=== PATIENT | male | born 1960 | race Caucasian/White ===

== ENCOUNTER 2022-02-17 00:28 | Day surgery (SDC) | payer BC, SELFPAY ==
[2022-02-07 09:58] VITALS: BMI 34.0
[2022-02-17 09:40] VITALS: BP 138/50; PULSE 70; RESP 18; TEMP 36.4; O2SAT 96; BMI 33.4
[2022-02-17] MEDS: LACTATED RINGERS 1,000 ML 150 ML IV CONT (10:04)
--- NOTE | 2022-02-17 10:04 | WPDGICN ---
Assessment and Plan Assessment and plan (1) Encounter for screening colonoscopy: Code(s): Z12.11 - Encounter for screening for malignant neoplasm of colon Status: Acute Assessment and Plan: Patient presents for screening colonoscopy. Appears to be at average risk for colon polyps. Further recommendations will be given after endoscopy. GI Consult Note Consult date/time: 02/17/22 10:04 Reason for consult: Neoplasia screening. HPI: Willard Ontiveros is a 61 year old male Presents for neoplasia screening. Patient's current weight appetite and bowel movements are normal. He denies abdominal pain. Patient has had no bleeding. Family history is noncontributory. Patient recently was diagnosed with prostate cancer and desires neoplasia screening colonoscopy at this time. Review of Systems Review of Systems: Review of systems noncontributory. [facility] Past Medical History Medical History Arthritis FallNovember 2019 Gastro-esophageal reflux Hemorrhoid Surgery History of hemorrhoids Hyperglycemia Hyperlipidemia Hypertension Surgical History Surgical History History of eyelid surgery History of foot surgery Family History Family History Father Hypertension Mother GERD (gastroesophageal reflux disease) Thyroid disease Other Heart disease Social History Social History Smoking packs per day: 1 Smoking cigarettes per day: 20.0 Smoking status: Former smoker Tobacco type: cigarettes Second hand tobacco smoke exposure: Yes Smoking end date: 09/24/12 Alcohol intake: current Drinks per week: 7 Alcohol use details: one daily Substance use: never Substance use type: does not use Living arrangements: with family Spiritual care concerns: No Meds Home Medications and Allergies Home Medications Medication Instructions Recorded Confirmed Type aspirin 81 mg tablet,delayed 81 mg PO DAILY 07/29/19 02/17/22 History release lorazepam 0.5 mg tablet 0.5 mg PO TID PRN Anxiety 07/29/19 02/17/22 History fluticasone propionate 50 2 spray intranasal DAILY #15.8 mL 07/12/21 02/17/22 Rx mcg/actuation nasal spray,suspension lisinopril 20 mg tablet 20 mg PO DAILY #90 tabs 09/26/21 02/17/22 Rx rosuvastatin 10 mg tablet (Crestor) 10 mg PO DAILY #90 tabs 09/26/21 02/17/22 Rx pantoprazole 40 mg tablet,delayed 40 mg PO QAM #90 tabs 11/07/21 02/17/22 Rx release (Protonix) citalopram 10 mg tablet 10 mg PO DAILY #90 tabs 12/22/21 02/17/22 Rx Allergies Allergy/AdvReac Type Severity Reaction Status Date / Time No Known Allergies Allergy Unknown Verified 02/17/22 09:49 Vital Signs Vital Signs - 24 hr 02/17/22 09:40 Temperature 97.5 F L Pulse Rate 70 Respiratory Rate 18 Blood Pressure 138/50 L Pulse Oximetry 96 Oxygen Delivery Room Air Exam Narrative: Physical exam reveals patient to be alert. Vital signs stable. HEENT exam is unremarkable. Patient is anicteric. Lungs are clear to auscultation and percussion. Heart is without murmur or extra sounds. Abdominal exam bowel sounds are present soft nontender with no organomegaly. Digital external rectal exam is normal.
--- NOTE | 2022-02-17 10:20 | WPDANESEPPF ---
Anes - Initial Pre Proc Eval Procedure: Operation Date: 02/17/22 11:00 Proposed Procedures p Screening Colonoscopy - Oj Jean MD Date/Time: 02/17/22 10:20 Surgeon: Oj Jean MD Pre Op Diagnosis: neoplasm screening Patient Data Age: 61 Gender: M Height: 1.85 m Weight: 115 kg Last Vital Signs Temp 97.5 F L 02/17/22 09:40 Pulse 70 02/17/22 09:40 Resp 18 02/17/22 09:40 BP 138/50 L 02/17/22 09:40 Pulse Ox 96 02/17/22 09:40 O2 Del Method Room Air 02/17/22 09:40 Allergies Allergy/AdvReac Type Severity Reaction Status Date / Time No Known Allergies Allergy Unknown Verified 02/17/22 09:49 Home Medications Medication Instructions Recorded Confirmed Type aspirin 81 mg tablet,delayed 81 mg PO DAILY 07/29/19 02/17/22 History release lorazepam 0.5 mg tablet 0.5 mg PO TID PRN Anxiety 07/29/19 02/17/22 History fluticasone propionate 50 2 spray intranasal DAILY #15.8 mL 07/12/21 02/17/22 Rx mcg/actuation nasal spray,suspension lisinopril 20 mg tablet 20 mg PO DAILY #90 tabs 09/26/21 02/17/22 Rx rosuvastatin 10 mg tablet (Crestor) 10 mg PO DAILY #90 tabs 09/26/21 02/17/22 Rx pantoprazole 40 mg tablet,delayed 40 mg PO QAM #90 tabs 11/07/21 02/17/22 Rx release (Protonix) citalopram 10 mg tablet 10 mg PO DAILY #90 tabs 12/22/21 02/17/22 Rx Patient hx anesthesia problems: none Family hx anesthesia problems: none Results Review: All pre-operative results and documents have been reviewed as part of the pre-operative evaluation. [facility] Past Medical History Medical History Arthritis FallNovember 2019 Gastro-esophageal reflux Hemorrhoid Surgery History of hemorrhoids Hyperglycemia Hyperlipidemia Hypertension Surgical History Surgical History History of eyelid surgery History of foot surgery Family History Family History Father Hypertension Mother GERD (gastroesophageal reflux disease) Thyroid disease Other Heart disease Social History Social History Smoking packs per day: 1 Smoking cigarettes per day: 20.0 Smoking status: Former smoker Tobacco type: cigarettes Second hand tobacco smoke exposure: Yes Smoking end date: 09/24/12 Alcohol intake: current Drinks per week: 7 Alcohol use details: one daily Substance use: never Substance use type: does not use Living arrangements: with family Spiritual care concerns: No Anes - Eval Final PreProcedure Day of Procedure 02/17/22 10:20 Patient weight: obese Heart: regular rate and rhythm Lungs: clear to auscultation Airway: Mallampati scale class II Neurological: alert and oriented Last oral intake: >/= 8 hours ASA classification: III Emergent: no Anesthetic plan: proceed Anesthesia type and monitoring: general GIVS and standard monitoring Results Review: All pre-operative results and documents have been reviewed as part of the pre-operative evaluation. Informed Consent: The patient's anesthetic plan and its attendant risks and benefits were discussed with the patient/family/POA. Questions were solicited and answers provided to the satisfaction of the patient/family/POA.
[2022-02-17 10:51] VITALS: BP 124/76; PULSE 58; RESP 12; O2SAT 96
[2022-02-17 11:01] VITALS: BP 112/70; PULSE 59; RESP 12; O2SAT 96
[2022-02-17 11:11] VITALS: BP 119/68; PULSE 61; RESP 16; O2SAT 98
== END 2022-02-17 11:15 | disposition home or self-care (01) ==
PROVIDERS: PCP Internal Medicine; Visit Provider Internal Medicine Gastroenterology
PROC: 0DJD8ZZ Inspection of Lower Intestinal Tract, Via Natural or Artificial Opening Endoscopic (ICD-10-PCS; CPT 45378; principal; 2022-02-17 11:00)
DX: Z12.11 Encounter for screening for malignant neoplasm of colon (principal); K64.8 Other hemorrhoids; I10 Essential (primary) hypertension; E78.5 Hyperlipidemia, unspecified; K21.9 Gastro-esophageal reflux disease without esophagitis; Z87.891 Personal history of nicotine dependence; E66.9 Obesity, unspecified; Z68.33 Body mass index [BMI] 33.0-33.9, adult; Z79.82 Long term (current) use of aspirin
CPT/HCPCS: 45378; J2704; J7120

== ENCOUNTER 2022-04-20 07:35 | Outpatient (CLI) | payer BC, SELFPAY ==
--- NOTE | 2022-04-20 08:17 | EST_ITS ---
Patient Info Name: Willard Ontiveros Age: 61 years : 1960 Gender: Male Ht: 74 in Wt: 255 lbs BSA: 2.49 m2 HR: 52 bpm BP: 123 / 67 mmHg Heart Rhythm: Sinus Rhythm Technical Quality: Good Exam Date: 04/20/2022 8:53 AM Exam Location: [facility] Patient Status: Outpatient Admit Date: 04/20/2022 Staff Ordering Physician: Fidencio Cruz DO Tallier: Shelly Pierce RDCS Attending Provider: Fidencio Cruz DO Referring Physician: Anthony MALAGON; Exercise Technologist: Reyna Mckenna CT Exercise Physician: Epifanio Morin DO Exam Type: CA stress echo Study Info Indications R07.89 - Other chest pain Treadmill exercise stress echocardiogram is performed. Summary 1. 1. Negative [place] exercise stress test for ischemic ST changes by ECG criteria. 2. 2. Good functional capacity, achieving 11 METs of workload. 3. 3. Appropriate HR response to exercise. 4. 4. Appropriate HR recovery at 1 minute post exercise. 5. 5. Negative stress echocardiogram for ischemia by wall motion analysis. 6. 6. Patient informed of the above results. Stress Echo Findings Left Ventricle Appropriate increase in LV endocardial thickening with systole. Appropriate augmentation of contractility with systole. No wall motion abnormality. Left Ventricle Normal LV systolic function, no wall motion abnormality. Protocol: [place] Stress ECG Details Stage: REST Duration (min): 1 min : 8 sec Speed (mph): 0.0 Grade (%): 0 HR (bpm): 52 SBP (mmHg): 123 DBP (mmHg): 67 METS: --- Stage: REST Duration (min): 1 min : 30 sec Speed (mph): 0.0 Grade (%): 0 HR (bpm): 57 SBP (mmHg): 123 DBP (mmHg): 67 METS: --- Stage: REST Duration (min): 21 min : 37 sec Speed (mph): 0.0 Grade (%): 0 HR (bpm): 75 SBP (mmHg): 123 DBP (mmHg): 67 METS: --- Stage: STAGE 1 Duration (min): 1 min : 0 sec Speed (mph): 1.7 Grade (%): 10 HR (bpm): 88 SBP (mmHg): 123 DBP (mmHg): 67 METS: --- Stage: STAGE 1 Duration (min): 2 min : 0 sec Speed (mph): 1.7 Grade (%): 10 HR (bpm): 91 SBP (mmHg): 123 DBP (mmHg): 67 METS: --- Stage: STAGE 1 Duration (min): 3 min : 0 sec Speed (mph): 1.7 Grade (%): 10 HR (bpm): 92 SBP (mmHg): 131 DBP (mmHg): 63 METS: --- Stage: STAGE 2 Duration (min): 1 min : 0 sec Speed (mph): 2.5 Grade (%): 12 HR (bpm): 97 SBP (mmHg): 131 DBP (mmHg): 63 METS: --- Stage: STAGE 2 Duration (min): 2 min : 0 sec Speed (mph): 2.5 Grade (%): 12 HR (bpm): 100 SBP (mmHg): 133 DBP (mmHg): 65 METS: --- Stage: STAGE 2 Duration (min): 3 min : 0 sec Speed (mph): 2.5 Grade (%): 12 HR (bpm): 100 SBP (mmHg): 133 DBP (mmHg): 65 METS: --- Stage: STAGE 3 Duration (min): 1 min : 0 sec Speed (mph): 3.4 Grade (%): 14 HR (bpm): 110 SBP (mmHg): 200 DBP (mmHg): 85 METS: ---
== END 2022-04-20 07:36 | disposition home or self-care (01) ==
PROVIDERS: PCP Internal Medicine; Visit Provider Internal Medicine
DX: R07.89 Other chest pain (principal)
CPT/HCPCS: 93351

== ENCOUNTER 2023-01-09 14:33 | Outpatient (CLI) | payer BC, SELFPAY ==
--- NOTE | ~2023-01-09 | XR_ITS ---
XR_[id number]_CR 01/09/2023 14:54 Indication: Cervicalgia Procedure: 4 view cervical spine Comparison: No prior studies for comparison. Findings: Vertebral body heights are maintained. There is mild disc narrowing at C5-6. There is multi level facet and uncinate hypertrophy. No prevertebral soft tissue swelling. No acute fracture or trau matic malalignment. Lung apices are normal. Odontoid process is normal. Impression: 1: Moderate cervical spondylosis. Reviewed, dictated and finalized at location A. Impression: 1: Moderate cervical spondylosis.
== END 2023-01-09 14:34 ==
LOC: MICIMG 14:35
PROVIDERS: PCP Internal Medicine; Visit Provider Internal Medicine
DX: M47.812 Spondylosis without myelopathy or radiculopathy, cervical region (principal)
CPT/HCPCS: 72040

== ENCOUNTER 2023-05-09 09:46 | Outpatient (CLI) | payer BC, SELFPAY ==
--- NOTE | ~2023-05-09 | CT_ITS ---
EXAMINATION: CT abdomen pelvis w con DATE: 05/09/2023 10:27 INDICATION: Prostate cancer. TECHNIQUE: Computed tomography (CT) of the abdomen and pelvis was performed with 100 mL Omnipaque 350 intravenous contrast. Automated exposure control and iterative reconstruction technique were employe d. The dose-length product was 1177.57 mGy-cm. COMPARISON: None. FINDINGS: The visualized portions of the lung bases are clear without pneumonia or pleural effusion. The heart size is normal. No pericardial effusion. The liver, gallbladder, spleen, pancreas, and adre nal glands are normal. There are cysts in the kidneys measuring up to 4 mm. The prostate is mildly en larged. There is prominent fat in left inguinal canal that may be a hernia. There are no dilated loop s of bowel. The appendix is normal. There are no pathologically enlarged lymph nodes. There is no aicha e intraperitoneal fluid. There is moderate lumbar spondylosis. IMPRESSION: 1. No evidence of metastatic disease. Reviewed, dictated and finalized at location A.
--- NOTE | ~2023-05-09 | NM_ITS ---
EXAMINATION: NM bone scan whole body DATE: 05/09/2023 16:10 INDICATION: Prostate cancer TECHNIQUE: The sixth mCi Tc-99m HDP was administered intravenously. Delayed whole-body scintigrams w ere obtained. COMPARISON: CT abdomen pelvis dated 05/09/2023 FINDINGS/IMPRESSION: Physiologic distribution of activity throughout the bones and soft tissues. No lesion suspicious for metastatic disease. Reviewed, dictated and finalized at location A.
[2023-05-09 10:17] LABS: Estimated Glomerular Filt Rate > 60
== END 2023-05-09 09:47 | disposition home or self-care (01) ==
PROVIDERS: PCP Internal Medicine; Visit Provider Urology
DX: C61 Malignant neoplasm of prostate (principal)
CPT/HCPCS: 74177; 78306; A9503; Q9967

== ENCOUNTER 2023-07-23 10:06 | Outpatient (CLI) | payer BC, SELFPAY ==
--- NOTE | ~2023-07-23 | XR_ITS ---
EXAMINATION: XR chest 2V DATE: 07/23/2023 11:31 INDICATION: Malignant neoplasm of prostate. Preop. TECHNIQUE: Frontal and lateral views of the chest were obtained. COMPARISON: CT abdomen and pelvis 05/09/2023 FINDINGS: There is no pneumonia, pleural effusion, or pneumothorax. The heart size is normal. There i s mild chronic anterior wedging of multiple vertebral bodies. IMPRESSION: 1. No acute cardiopulmonary disease. Reviewed, dictated and finalized at location E.
--- NOTE | 2023-07-23 10:54 | ECG_ITS ---
Measurements Intervals [place] Rate: 57 P: 56 WV: 168 QRS: -11 QRSD: 103 T: 1 QT: 421 QTc: 412 Interpretive Statements SINUS BRADYCARDIA NONSPECIFIC T-WAVE ABNORMALITY ABNORMAL ECG NO PREVIOUS ECG AVAILABLE FOR COMPARISON Electronically Signed On 07-23-2023 11:13:40 CDT by Clint Faith M.D.
[2023-07-23 11:18] LABS: Basophils Absolute Auto 0.1 K/mm3 (0.0-0.1); Basophils Percent Auto 1.2 % (0.2-1.2); Eosinophils Absolute Auto 0.3 K/mm3 (0-0.3); Eosinophils Percent Auto 3.5 % (0-4.4); Hematocrit 44.8 % (42.0-52.0); Hemoglobin 14.9 g/dL (14.0-18.0); Immature Granulocyte Absolute 0.06 K/mm3 (0.00-0.031); Immature Granulocyte Percent A 0.8 % (0-0.5); Lymphocytes Absolute Auto 2.41 K/mm3 (0.9-3.2); Mean Corpuscular HGB Conc 33.3 g/dl (32-36); Mean Corpuscular Hemoglobin 31.4 pg (26-34); Mean Corpuscular Volume 94.5 fl (80-100); Mean Platelet Volume 8.9 fl (7.4-10.4); Monocytes Absolute Auto 0.9 K/mm3 (0.1-0.6); Monocytes Percent Auto 11.3 % (2.6-8.5); Neutrophils Absolute Auto 4.1 K/mm3 (1.3-6.7); Neutrophils Percent Auto 52.2 % (45.5-73.1); Platelet Count Result 257 k/mm3 (150-375); Red Blood Count 4.74 M/mm3 (4.6-6.20); Red Cell Distribution Width 12.6 % (11.5-14.5); White Blood Count 7.8 K/mm3 (4.5-10.0)
[2023-07-23 11:20] LABS: Appearance Urine Clear (Clear); Bilirubin Urine Negative (Negative); Blood Urine Negative (Negative); Color Urine Yellow (Yellow); Glucose Urine UA Negative (Negative); Ketones Urine Negative (Negative); Leukocyte Esterase Ur Negative LEU/UL (Negative); Nitrate Urine Negative (Negative); Protein Urine Negative (Negative); Specific Grav Ur 1.012 (1.001-1.035); Urobilinogen Urine 0.2 mg/dL (<2.0); pH Urine 7.5 (5.0-9.0)
[2023-07-23 11:28] LABS: INR 0.9; Prothrombin Time 12.2 Seconds (11.1-14.7)
[2023-07-23 11:29] LABS: Partial Thromboplastin Time 25.7 SECONDS (22.3-36.8)
[2023-07-23 11:34] LABS: Alanine Aminotransferase 59 U/L (6-50); Albumin Level 4.4 g/dL (3.5-5.1); Alkaline Phosphatase 66 U/L (38-126); Anion Gap 5 mmol/L (8-16); Aspartate Amino Transferase 36 U/L (17-59); Bilirubin,Total 0.6 mg/dL (0.2-1.3); Blood Urea Nitrogen 11 mg/dL (9-20); Calcium 9.4 mg/dL (8.4-10.2); Carbon Dioxide 29 mmol/L (22-30); Chloride 103 mmol/L (98-107); Estimated Glomerular Filt Rate > 60; Glucose 101 mg/dL (65-110); Sodium 137 mmol/L (137-145)
[2023-07-23 11:39] LABS: Add Urine Microscopic? NO
== END 2023-07-23 10:07 | disposition home or self-care (01) ==
LOC: ANHSURGERY 10:09
PROVIDERS: PCP Internal Medicine; Visit Provider Urology
DX: C61 Malignant neoplasm of prostate (principal); Z01.818 Encounter for other preprocedural examination; R94.31 Abnormal electrocardiogram [ECG] [EKG]
CPT/HCPCS: 36415; 71046; 80053; 81003; 85025; 85610; 85730; 86850; 86900; 86901; 93005

== ENCOUNTER 2023-08-02 01:41 | Day surgery (SDC) | payer BC, SELFPAY ==
[2023-07-23 10:14] VITALS: BMI 32.8
--- NOTE | 2023-07-23 10:37 | PC.NURSE ---
Report to the Outpatient Waiting Room, entrance under the green pavilion located off [address], at time _0600 on date __08/02/23 . Planned Procedure Time: ___0730 . Time changes happen often and if your time is changed the preop area will call you the afternoon before. - You and your visitor will be asked to self-screen and do not enter if you have any COVID symptoms. - A mask is optional within the hospital at this time. Patients may have clear liquids (water, carbonated beverages, clear teas, apple juice) until 3 hours prior to surgery with a maximum of 20 ounces. - No food from midnight until time of surgery - Infants may have breast milk until 4 hours before surgery, infant formula 6 hours prior to surgery. - Children will be allowed to drink immediately following surgery. If applicable, please bring a bottle or sippy cup to assist with drinking. Juice, water, soda, and popsicles are readily available. For infants on formula, please bring formula the day of surgery. Pacifiers are allowed. Take the following medications with a SIP of water the morning of surgery: __NONE DO NOT STOP ANY OF YOUR OTHER PRESCRIPTION MEDICATIONS PRIOR TO SURGERY ?EXCEPT THE FOLLOWING Medications to discontinue per physician _PT STATES HOLD ASPIRIN 7 DAYS PRE OP .LAST DOSE 07/18/23 (HELD ON HIS OWN) ALL VITAMINS AND SUPPLEMENTS 3 DAYS PRE OP.LAST DOSE 07/29/[address] SANTIAGO Please no make-up, nail turkmen, hairspray, perfume, deodorant, or body powder the day of surgery. No jewelry (including any body piercings) or valuables the day of surgery, leave them at home. Please take a shower or bath the night before, or the morning of, surgery with an antibacterial soap. Wear comfortable, loose fitting clothing. Children are encouraged to wear pajamas. - Jewelry must be removed prior to entering the operating room. Rings and piercings that are not removed may be cut off. - The hospital will not accept responsibility for valuables. - Please leave all valuables, including medications, at home the day of surgery. If you are going home after surgery, a licensed charter driver must drive you home. - NO public transportation without another adult if you receive anesthesia. - We recommend that an adult stay with you for 24 hours following discharge. - We also recommend that you do not drive, make important decision, drink alcoholic beverages, or take any drugs that were not prescribed by your health care provider for at least 24 hours after your discharge time. For Pediatric surgeries, we recommend two adults accompany the child home. Follow any additional instructions given to you from your surgeon. If you or anyone in your household have experienced Covid symptoms in the past week, please notify your surgeon or the nurse liaison at the phone number below for possible testing. VERBAL AND WRITTEN instructions given to ___PATIENT and asked if any additional questions and then verbalized understanding. Patient advised to call surgeon office or pre surgery nurse liaison [phone] if any additional questions.
[2023-07-23 10:53] VITALS: BP 140/93; PULSE 58; RESP 18; TEMP 37.1; O2SAT 99
--- NOTE | 2023-07-27 08:13 | PM.IMHP ---
H&P: HPI History of Present Illness Date/Time: 07/27/23 08:13 Chief Complaint: Prostate cancer Narrative: pleasant 62-year-old recently found to have prostate cancer in October 2021 when a PSA of 6.2 led to a biopsy that demonstrated adenocarcinoma 3+3=6 in 2 of 12 cores. He initially opted for active surveillance but on confirmatory biopsy was found to have 7 of 12 cores with [place] 6 and 3+4=7. After discussion of options at that point, including ongoing active surveillance, radiation therapy its various forms and radical prostatectomy he has elected for the latter. He is aware the risks including, but not limited to, adverse cardiopulmonary events, rectal injury, urinary incontinence and erectile dysfunction. Prostate volume is 47.8 g. Review of Systems Cardiovascular: Cardiovascular: Denies chest pain, Denies lightheadedness, Denies palpitations and Denies dyspnea Respiratory: Respiratory: Denies dyspnea Gastrointestinal: Gastrointestinal: Denies diarrhea, Denies nausea and Denies vomiting Genitourinary: Genitourinary: Denies hematuria and Denies dysuria Endocrine: Endocrine: Denies palpitations PMFSH Past Medical History Medical History Arthritis FallNovember 2019 Gastro-esophageal reflux Hemorrhoid Surgery History of hemorrhoids Hyperglycemia Hyperlipidemia Hypertension Surgical History Surgical History History of eyelid surgery History of foot surgery Family History Family History Father Hypertension Mother GERD (gastroesophageal reflux disease) Thyroid disease Other Heart disease Social History Social History Smoking packs per day: 1 Smoking cigarettes per day: 20.0 Smoking status: Current every day smoker Tobacco type: cigarettes Second hand tobacco smoke exposure: Yes Smoking end date: 09/24/12 Additional smoking assessment comments: HAD SMOKED 1PPK/DAY HAS BEEN SMOKING X 30 YRS Alcohol intake: current Drinks per week: 7 Alcohol use details: one daily Substance use: current Substance use type: marijuana Last use: 07/21/23 Lack of Transportation: No Lack of Food: Never True Current Housing: I Have Housing Concerned About Future Housing: No Difficulty Paying Gas/Electric Bills: No Difficulty Paying for Meds: No Currently Unemployed: No Education: High School Diploma/GED Difficulty w/ Childcare or Family Care: No Living arrangements: with family Spiritual care concerns: No Meds Home Medications and Allergies Home Medications Medication Instructions Recorded Confirmed Type clotrimazole-betamethasone 1 1 applic topical BID #45 grams 03/15/22 07/23/23 Rx %-0.05 % topical cream lorazepam 0.5 mg tablet 0.5 mg PO BID PRN Anxiety #30 tabs 04/10/23 07/23/23 Rx ascorbic acid (vitamin C) 500 mg 500 mg PO HS 07/23/23 07/23/23 History tablet aspirin 81 mg tablet,delayed 81 mg PO HS 07/23/23 07/23/23 History release (Adult Low Dose Aspirin) citalopram 20 mg tablet 20 mg PO HS 07/23/23 07/23/23 History fluticasone propionate 50 2 spray intranasal PRN PRN Allergy 07/23/23 07/23/23 History mcg/actuation nasal Symptoms spray,suspension lisinopril 20 mg tablet 20 mg PO HS 07/23/23 07/23/23 History pantoprazole 40 mg tablet,delayed 40 mg PO HS 07/23/23 07/23/23 History release rosuvastatin 20 mg tablet 20 mg PO HS 07/23/23 07/23/23 History zinc 50 mg tablet 50 mg PO HS 07/23/23 07/23/23 History clindamycin HCl 300 mg capsule 300 mg PO Q8H #30 caps 07/26/23 Rx Allergies Allergy/AdvReac Type Severity Reaction Status Date / Time No Known Allergies Allergy Unknown Verified 07/23/23 10:14 Exam Const: General: no acute distress Resp: Effort & Inspection: normal respiratory effort GI: I
[2023-08-02] VITALS (15 sets, daily range): BP systolic 119–146; BP diastolic 58–85; PULSE 62–82; RESP 10–20; TEMP 36.4–36.7; O2SAT 92–100; BMI 32.3
[2023-08-02] MEDS: LACTATED RINGERS 1,000 ML 30 ML IV CONT ×2 (06:15→11:00)
--- NOTE | 2023-08-02 06:17 | WPDHPUPDATE1 ---
History and Physical Update Update Date/Time: 08/02/23 06:17 History and Physical has been reviewed, including an updated exam of the patient. There are NO changes in the patient's condition. Risks, benefits, and alternatives have been discussed and questions answered. Patient agrees to proceed with procedure.
--- NOTE | 2023-08-02 07:21 | WPDANESEPPF ---
Anes - Initial Pre Proc Eval Procedure: Operation Date: 08/02/23 07:30 Proposed Procedures p Robotic Assisted Laparoscopic Prostatectomy with Bilateral Pelvic Lymph Node Dissection - Terrance Burrell MD Date/Time: 08/02/23 07:21 Surgeon: Trerance Burrell MD Pre Op Diagnosis: prostate cancer Patient Data Age: 62 Gender: M Height: 1.85 m Weight: 111 kg Last Vital Signs Temp 36.5 C 08/02/23 07:09 Pulse 62 08/02/23 07:09 Resp 16 08/02/23 07:09 BP 128/65 08/02/23 07:09 Pulse Ox 96 08/02/23 07:09 O2 Del Method Room Air 08/02/23 07:09 Allergies Allergy/AdvReac Type Severity Reaction Status Date / Time No Known Allergies Allergy Unknown Verified 08/02/23 06:00 Home Medications Medication Instructions Recorded Confirmed Type clotrimazole-betamethasone 1 1 applic topical BID #45 grams 03/15/22 07/23/23 Rx %-0.05 % topical cream lorazepam 0.5 mg tablet 0.5 mg PO BID PRN Anxiety #30 tabs 04/10/23 07/23/23 Rx ascorbic acid (vitamin C) 500 mg 500 mg PO HS 07/23/23 07/23/23 History tablet aspirin 81 mg tablet,delayed 81 mg PO HS 07/23/23 07/23/23 History release (Adult Low Dose Aspirin) citalopram 20 mg tablet 20 mg PO HS 07/23/23 07/23/23 History fluticasone propionate 50 2 spray intranasal PRN PRN Allergy 07/23/23 07/23/23 History mcg/actuation nasal Symptoms spray,suspension lisinopril 20 mg tablet 20 mg PO HS 07/23/23 07/23/23 History pantoprazole 40 mg tablet,delayed 40 mg PO HS 07/23/23 07/23/23 History release rosuvastatin 20 mg tablet 20 mg PO HS 07/23/23 07/23/23 History zinc 50 mg tablet 50 mg PO HS 07/23/23 07/23/23 History clindamycin HCl 300 mg capsule 300 mg PO Q8H #30 caps 07/26/23 Rx Patient hx anesthesia problems: none Family hx anesthesia problems: none Results Review: All pre-operative results and documents have been reviewed as part of the pre-operative evaluation. [facility] Past Medical History Medical History Arthritis FallNovember 2019 Gastro-esophageal reflux Hemorrhoid Surgery History of hemorrhoids Hyperglycemia Hyperlipidemia Hypertension Surgical History Surgical History History of eyelid surgery History of foot surgery Family History Family History Father Hypertension Mother GERD (gastroesophageal reflux disease) Thyroid disease Other Heart disease Social History Social History Smoking packs per day: 1 Smoking cigarettes per day: 20.0 Smoking status: Current every day smoker Tobacco type: cigarettes Second hand tobacco smoke exposure: Yes Smoking end date: 09/24/12 Additional smoking assessment comments: HAD SMOKED 1PPK/DAY HAS BEEN SMOKING X 30 YRS Alcohol intake: current Drinks per week: 7 Alcohol use details: one daily Substance use: current Substance use type: marijuana Last use: 07/21/23 Lack of Transportation: No Lack of Food: Never True Current Housing: I Have Housing Concerned About Future Housing: No Difficulty Paying Gas/Electric Bills: No Difficulty Paying for Meds: No Currently Unemployed: No Education: High School Diploma/GED Difficulty w/ Childcare or Family Care: No Living arrangements: with family Spiritual care concerns: No Anes - Eval Final PreProcedure Day of Procedure 08/02/23 07:21 Patient weight: obese Heart: regular rate and rhythm Lungs: decreased breath sounds Airway: Mallampati scale class II Neurological: alert and oriented Last oral intake: >/= 8 hours ASA classification: III Emergent: no Anesthetic plan: proceed Anesthesia type and monitoring: general ETT and standard monitoring Results Review: All pre-operative results and documents have been reviewed as part of the pre-operati
[2023-08-02] MEDS: SCOPOLAMINE 1.5 MG PATCH TRANSDERM (07:26)
[2023-08-02] MEDS: ceFAZolin 2 GM/D5W 50 ML 2 GM/50 ML BAG IVPB (07:30)
--- NOTE | 2023-08-02 10:45 | W.PM.PROC2 ---
Procedure Note - Detailed Date of Procedure 08/02/23 Pre-op Diagnosis Prostate cancer Post-op Diagnosis Same Procedure Performed Robotic assisted radical prostatectomy with bilateral pelvic lymphadenectomy Surgeon Terrance Burrell MD Anesthesia General Findings No evidence of gross extraprostatic disease Description of Procedure The patient was brought to the operative suite, where he was prepped and draped in routine sterile fashion while in a dorsal lithotomy, deep Trendelenburg position. A supraumbilical 10 mm trocar was placed after insufflation of the abdomen with a Veress needle. Three robotic ports were then placed under direct vision. Two of these were placed in the right lower quadrant - 10 cm and 20 cm lateral to, and in line with, the umbilicus. A third robotic trocar was placed 10 cm to the left of the umbilicus, and 20 cm to the left of the umbilicus, a 12 mm standard laparoscopic trocar was placed to be used as an phlebotomist medical lab assistant port. Lastly, a 5 mm trocar was placed in the left upper quadrant midway between the umbilicus and the left robotic trocar. Attention was then turned to the prostatectomy. I opted for a posterior approach in this patient. An incision was made in the parietal peritoneum along the posterior bladder/posterior prostate about 2 cm above the reflection of the peritoneum over the anterior rectum. The seminal vesicles and vas deferens were immediately identified. Dissection is undertaken in a fashion so as to avoid electrocautery as much as possible, particularly near the tips of the seminal vesicles. Dissection was also carried out in the midline so as to avoid any encounters with the ureters. The vas deferens and the seminal vesicles were dissected in their entirety to the base of the prostate. The plane anterior to Denoviller's fascia, anterior to the rectum and posterior to the prostate was then developed. I then dropped the bladder by incising the anterior parietal peritoneum just lateral to the median umbilical ligaments bilaterally. The bladder was dropped from the anterior abdominal and pelvic wall. The endopelvic fascia was identified and incised bilaterally, allowing for dissection of the posterior-lateral aspect of the prostate. The puboprostatic ligaments were transected near their origin from the posterior pubic ramus. This posterior lateral dissection of the prostate is also undertaken in a fashion so as to avoid electrocautery as much as possible. The dorsal vein of the penis is then secured with an 0 -Vicryl ligature. Attention is then turned to the bladder neck. The anterior bladder neck is incised at the vesico-prostatic junction. The previously placed urethral catheter was drawn through the urethrotomy. A very small bladder neck was maintained throughout the remainder of this dissection. The posterior bladder neck was incised in a fashion so as to avoid any injury to the ureteral orifices. Again, the small aperture of the bladder neck was maintained. The previously dissected vas deferens and the seminal vesicles were brought through the posterior bladder neck incision. The lateral prostatic pedicles were then carefully dissected from the lateral aspect of the prostate bilaterally. The prostatic pedicles were secured with Weck clips and transected. The neurovascular bundles were carefully dissected from the posterior-lateral aspect of the prostate. The dorsal vein of the penis was incised with electrocautery. Using cold scissors, the urethra was incised. After withdrawing the previously placed urethral catheter, the posterior urethra was sharply incised, as was the rectalurethralis muscle. Attention was then turned to an extended bilateral pelvic lymphadenectomy. The limits of this dissection were similar bilaterally. Specifically, the limits were the bifurcation of the common iliac vein proximally, the inguinal ligament distally, the obturator nerve posteriorly and the anterior aspect to the ext
[2023-08-02] MEDS: fentaNYL CITRATE INJ (*CRX) 100 MCG/2 ML VIAL 25 MCG IV PUSH ×6 (11:41→11:56)
--- NOTE | 2023-08-02 13:01 | ADMGEN ---
This patient, Willard Ontiveros, was admitted to 2 Medical Room 261-01. Patient/family oriented to hospital policies and general routines including ID bracelet, bed and alarms, visiting hours, pain management, procedures, bathroom and other care routines, personal items, smoking policy, room service/diet, and visiting hours. Information on how to activate the Rapid Response Team has been discussed. Patient/Family are encouraged to report perceived risks to care and to ask questions if they do not understand what they are told or what they should do.
[2023-08-02] MEDS: KETOROLAC 30 MG/ML VIAL (*BKC) IV PUSH ×2 (13:06→20:40)
[2023-08-02] MEDS: LACTATED RINGERS 1,000 ML 125 ML IV CONT ×2 (13:07→20:39)
[2023-08-02] MEDS: MORPHINE SULFATE (*CRX) 2 MG/ML INJ IV PUSH (18:15)
[2023-08-02] MEDS: ROSUVASTATIN 10 MG TABLET 20 MG PO (20:37)
[2023-08-02] MEDS: PANTOPRAZOLE 40 MG TABLET PO (20:37)
[2023-08-02] MEDS: CITALOPRAM HYDROBROMIDE 20 MG TABLET PO (20:37)
[2023-08-03 00:34] VITALS: BP 100/76; PULSE 60; RESP 16; TEMP 36.8; O2SAT 95
[2023-08-03 05:35] VITALS: BP 124/61; PULSE 60; RESP 14; TEMP 36.7; O2SAT 97
[2023-08-03] MEDS: LACTATED RINGERS 1,000 ML 125 ML IV CONT (05:37)
[2023-08-03] MEDS: MORPHINE SULFATE (*CRX) 2 MG/ML INJ IV PUSH (05:38)
[2023-08-03 06:25] LABS: Hematocrit 32.3 % (42.0-52.0); Hemoglobin 10.7 g/dL (14.0-18.0)
--- NOTE | 2023-08-03 06:40 | WPDUROPN2 ---
Progress Note: A&P Assessment and Plan (1) Prostate cancer: Code(s): C61 - Malignant neoplasm of prostate Status: Acute Assessment and Plan: Doing well POD #1. Tolerating reg. diet. Ambulation this morning. Anticipate discharge midday. Subjective Subjective Date/Time Seen: 08/03/23 06:40 Interval history: Chronic low back pain, nothing acute. Tolerating diet Review of Systems Cardiovascular: Cardiovascular: Denies chest pain, Denies lightheadedness, Denies palpitations and Denies dyspnea Respiratory: Respiratory: Denies dyspnea Gastrointestinal: Gastrointestinal: Denies diarrhea, Denies nausea and Denies vomiting Genitourinary: Genitourinary: Denies hematuria and Denies dysuria Endocrine: Endocrine: Denies palpitations Exam Const: General: no acute distress Resp: Effort & Inspection: normal respiratory effort GI: Inspection: non-distended GI Palp: No abdominal tenderness and No Guarding due to palpation present (GI) Auscultation: normal bowel sounds Urinary Catheter: Urinary Catheter: patent and draining and urine clear Objective Data Vital Signs Vital Signs: Vital Signs - 24 hr 08/02/23 07:09 08/02/23 11:00 08/02/23 11:15 Temperature 97.7 F 98.1 F Pulse Rate 62 75 75 Respiratory Rate 16 18 18 Blood Pressure 128/65 132/71 141/83 H Pulse Oximetry 96 95 100 Oxygen Delivery Room Air Simple Face Mask Simple Face Mask Oxygen Flow Rate 8 8 08/02/23 11:30 08/02/23 11:45 08/02/23 12:00 Temperature Pulse Rate 72 76 79 Respiratory Rate 15 13 12 Blood Pressure 145/81 H 145/85 H 146/79 H Pulse Oximetry 92 96 95 Oxygen Delivery Nasal Cannula Nasal Cannula Nasal Cannula Oxygen Flow Rate 2 2 2 08/02/23 12:15 08/02/23 12:27 08/02/23 12:50 Temperature 97.7 F Pulse Rate 77 72 77 Respiratory Rate 10 L 12 12 Blood Pressure 130/83 130/83 141/77 H Pulse Oximetry 92 95 94 Oxygen Delivery Nasal Cannula Nasal Cannula Oxygen Flow Rate 2 2 08/02/23 14:24 08/02/23 13:05 08/02/23 13:35 Temperature 97.7 F 97.7 F Pulse Rate 82 70 Respiratory Rate 12 14 Blood Pressure 137/79 132/72 Pulse Oximetry 95 97 96 Oxygen Delivery Nasal Cannula Oxygen Flow Rate 2 08/02/23 14:35 08/02/23 18:35 08/02/23 20:31 Temperature 97.7 F 97.7 F 97.5 F L Pulse Rate 72 70 75 Respiratory Rate 15 16 20 Blood Pressure 119/60 122/64 122/58 L Pulse Oximetry 96 96 95 Oxygen Delivery Oxygen Flow Rate 08/03/23 00:34 08/03/23 05:35 Temperature 98.3 F 98.0 F Pulse Rate 60 60 Respiratory Rate 16 14 Blood Pressure 100/76 124/61 Pulse Oximetry 95 97 Oxygen Delivery Oxygen Flow Rate Intake/Output Intake/Output: Intake & Output 07/31/23 08/01/23 08/02/23 08/03/23 23:59 23:59 23:59 23:59 Intake Total 1890 1850 Output Total 270 1000 Balance 1620 850 Meds/Results Medications: Active Medications Generic Name Dose Route Start Last Admin Trade Name Freq PRN Reason Stop Dose Admin Citalopram Hydrobromide 20 mg 08/02/23 21:00 08/02/23 20:37 Citalopram Hydrobromide 20 Mg Tablet PO 20 mg HS DARRIAN Administration Fluticasone Propionate 2 spray 08/02/23 12:28 Fluticasone Propionate 0.05% Na Spr 16 Gm Btl (*Bkc) NASAL DAILY PRN Allergy Symptoms Hyoscyamine 0.125 mg 08/02/23 12:28 Hyoscyamine Sulfate 0.125 Mg Tablet SUBLINGUAL Q4H PRN Bladder Spasm Lactated Ringer's 1,000 mls @ 125 mls/hr 08/02/23 12:28 08/03/23 05:37 Lr - Lactated Ringers Iv IV CONT 125 mls/hr .Q8H DARRIAN Administration Ketorolac Tromethamine 30 mg 08/02/23 12:28 08/02/23 20:40 Ketorolac 30 Mg/Ml Vial (*Bkc) IV PUSH 08/03/23 12:27 30 mg Q6H PRN Administration Pain Rated 4-6 Levofloxacin 500 mg 08/03/23 09:00 Levofloxacin 500 Mg Tablet PO DAILY DARRIAN Lisinopril 20 mg 08/02/23 21:00 08/03/23 01:02 Lisinopril 20 Mg Tablet PO Not Given HS DARRIAN Lorazepam 0.5 mg 08/02/23 12:28 Lorazepam (*Crx
[2023-08-03 06:41] LABS: Anion Gap 5 mmol/L (8-16); Blood Urea Nitrogen 18 mg/dL (9-20); Calcium 8.4 mg/dL (8.4-10.2); Carbon Dioxide 26 mmol/L (22-30); Chloride 102 mmol/L (98-107); Estimated CRCL calculation 81 ml/min; Estimated Glomerular Filt Rate > 60; Glucose 118 mg/dL (65-110); Potassium 4.3 mmol/L (3.4-5.0); Sodium 133 mmol/L (137-145)
--- NOTE | 2023-08-03 09:11 | WPDANESPN ---
Anes - Prog Note Post-Op Date/Time: 08/03/23 09:11 Cardiovascular status: normal Respiratory status: normal Airway patency: baseline Mental status: baseline Post-Op hydration status: normal Vital Signs: Last Vital Signs Temp 36.7 C 08/03/23 05:35 Pulse 60 08/03/23 05:35 Resp 14 08/03/23 05:35 BP 124/61 08/03/23 05:35 Pulse Ox 97 08/03/23 05:35 O2 Del Method Nasal Cannula 08/02/23 14:24 O2 Flow Rate 2 08/02/23 14:24 Pain Score (VAS): no complaints I/O: Intake & Output 08/02/23 08/03/23 08/03/23 23:59 07:59 15:59 Intake Total 1440 1850 Output Total 200 1000 Balance 1240 850 Laboratory Tests 08/03/23 06:15 08/03/23 06:15 08/03/23 06:15 Hgb 10.7 L D Hct 32.3 L Sodium 133 L Potassium 4.3 Chloride 102 Carbon Dioxide 26 Anion Gap 5 L BUN 18 Creatinine 1.10 Estim Creat Clear Calc 81 Estimated GFR > 60 Glucose 118 H Calcium 8.4 Post-procedural complaints: none Patient Feedback: Patient satisfied with anesthetic care.
[2023-08-03 10:13] VITALS: BP 128/64; PULSE 62; RESP 14; TEMP 36.5; O2SAT 96
[2023-08-03] MEDS: levoFLOXacin 500 MG TABLET PO (10:26)
[2023-08-03] MEDS: KETOROLAC 30 MG/ML VIAL (*BKC) IV PUSH (10:26)
--- NOTE | 2023-08-03 12:31 | PM.DS ---
DS: Admitting Diagnosis Discharge Date 08/03/2023 Admitting Diagnosis Prostate cancer DS: Summary Hospital Course Hospital Course: This patient was admitted on the morning of his planned robotic prostatectomy. This procedure was uneventful, as was his postoperative course. By the evening of the procedure he was sitting at the bedside in tolerating a liquid diet. The following morning he was ambulating freely and tolerating regular food. His catheter drainage remained essentially clear throughout. His postoperative hemoglobin and serum creatinine were unremarkable. At the time of discharge he has been instructed in appropriate care for his Martines catheter with both a leg bag and bedside bag. He will be discharged with plans to follow-up in 1 week with a cystogram. Time Spent with Patient Time attestation: Total time spent providing and/or coordinating discharge services: DS: Data Data Completed and Pending Pending studies at discharge: Pending at discharge 08/02/23 10:40 Surgical [PTH] Routine Labs on day of discharge: Labs from last 24 hours 08/03/23 06:15 Hgb 10.7 L D Hct 32.3 L Sodium 133 L Potassium 4.3 Chloride 102 Carbon Dioxide 26 Anion Gap 5 L BUN 18 Creatinine 1.10 Estim Creat Clear Calc 81 Estimated GFR > 60 Glucose 118 H Calcium 8.4 Discharge Plan Discharge Patient Disposition: Home, Self-Care Discharge Instructions: 1) Martines catheter -> leg bag / bedside bag at night. 2) No lifting/straining >15lbs. x3 weeks. 3) No driving x1-week. 4) Resume normal, pre-operative diet. 5) My office will contact regarding follow-up in 1-week with cystogram. Patient Instructions: How to Stop Smoking (DC) Discharge Orders: Discharge Order (Routine); Ordered 08/03/23 Ordered By: Terrance Burrell Discharge Medications: New docusate sodium [Colace] 100 mg capsule 100 mg PO DAILY Qty: 30 0RF hydrocodone-acetaminophen 5-325 mg tablet 1 - 2 tablet PO Q6H PRN (Reason: pain) Qty: 20 0RF cephalexin 500 mg capsule 500 mg PO Q8H Qty: 9 0RF hyoscyamine sulfate 0.125 mg tablet 0.125 mg PO Q6H PRN (Reason: bladder spasms) Qty: 20 2RF Continued clotrimazole-betamethasone 1-0.05 % cream 1 applic topical BID Qty: 45 1RF lorazepam 0.5 mg tablet 0.5 mg PO BID PRN (Reason: Anxiety) Qty: 30 0RF pantoprazole 40 mg Tablet,Delayed Release (Dr/Ec) 40 mg PO HS citalopram 20 mg tablet 20 mg PO HS lisinopril 20 mg tablet 20 mg PO HS rosuvastatin 20 mg tablet 20 mg PO HS fluticasone propionate 50 mcg/actuation spray,suspension 2 spray NASAL PRN PRN (Reason: Allergy Symptoms) Held ascorbic acid (vitamin C) 500 mg Tablet 500 mg PO HS Hold Instructions: Resume on 08/05/23. zinc 50 mg Tablet 50 mg PO HS Hold Instructions: Resume on 08/05/23. aspirin [Adult Low Dose Aspirin] 81 mg Tablet,Delayed Release (Dr/Ec) 81 mg PO HS Hold Instructions: Resume on 08/05/23.
[2023-08-03 14:13] VITALS: BP 130/66; PULSE 64; RESP 15; TEMP 36.7; O2SAT 97
--- NOTE | 2023-08-03 14:16 | PC.NURSE ---
On 08/03/23, the student, [Wagner Koo], provided care and completed [facility] documentation on this patient. I have reviewed the student's documentation and agree with the findings.
== END 2023-08-03 13:40 | disposition home or self-care (01) ==
LOC: ANHSURGERY 05:49 → ANH2MED 12:32
PROVIDERS: PCP Internal Medicine; Visit Provider Urology
PROC: 0VT04ZZ Resection of Prostate, Percutaneous Endoscopic Approach (ICD-10-PCS; CPT 55867; principal; 2023-08-02 07:30)
DX: C61 Malignant neoplasm of prostate (principal); I10 Essential (primary) hypertension; E78.5 Hyperlipidemia, unspecified; K21.9 Gastro-esophageal reflux disease without esophagitis; Z79.82 Long term (current) use of aspirin; F17.210 Nicotine dependence, cigarettes, uncomplicated; F12.90 Cannabis use, unspecified, uncomplicated; E66.9 Obesity, unspecified; Z68.32 Body mass index [BMI] 32.0-32.9, adult
CPT/HCPCS: 55866; 38571; S2900; 36415; 80048; 85014; 85018; 88305; 88309; A9270; J0690; J1100; J1170; J1200; J1885; J2250; J2270; J2405; J2704; J3010; J7030; J7120

== ENCOUNTER 2023-08-10 11:33 | Outpatient (CLI) | payer BC, SELFPAY ==
--- NOTE | ~2023-08-10 | XR_ITS ---
EXAMINATION: XR cystogram DATE: 08/10/2023 12:13 INDICATION: Prostate cancer status post prostatectomy. TECHNIQUE: Water-soluble contrast was gravity-infused through the patient's Martines catheter. Multiple fluoroscopic images were obtained. Fluoroscopy exposure time was 0.2 minutes. The total number of tiesha ges was 8. COMPARISON: CT abdomen and pelvis 05/09/2023 FINDINGS: There is no extraluminal leakage of contrast. There are phleboliths in left pelvis. IMPRESSION: 1. No extraluminal leakage of contrast. Reviewed, dictated and finalized at location A. LOGY TECHNICIAN
== END 2023-08-10 11:34 | disposition home or self-care (01) ==
PROVIDERS: PCP Internal Medicine; Visit Provider Urology
DX: C61 Malignant neoplasm of prostate (principal)
CPT/HCPCS: 51600; 74430; Q9967

== ENCOUNTER 2024-03-20 09:55 | Outpatient (CLI) | payer BC, SELFPAY ==
--- NOTE | ~2024-03-20 | XR_ITS ---
3 VIEWS LUMBAR SPINE Ordering provider: Tyler Sher DO History: . M54.50 - Low back pain, HX SI ISSUES . Comparison: October 13, 2008 FINDINGS: VERTEBRAL BODIES:Slight loss of volume of T12 anteriorly which is chronic and unchanged from previous exam. No visible fracture or subluxation. Sacralization of L5. DISK SPACES: Narrowing of the disc L4-L5 and L5-S1. Multilevel facet joint disease in the lower lumba r area. SOFT TISSUES: Normal. IMPRESSION: No acute osseous abnormality lumbar spine. Reviewed, dictated and finalized at location A.
== END 2024-03-20 09:56 | disposition home or self-care (01) ==
PROVIDERS: PCP Internal Medicine; Visit Provider Internal Medicine
DX: M54.50 Low back pain, unspecified (principal); G89.29 Other chronic pain
CPT/HCPCS: 72100